=== PATIENT | male | born 1975 | race Hispanic/Latino ===

== ENCOUNTER → 2021-11-15 | Outpatient (CLI) | payer BC | END | disposition home or self-care (01) | LOC: RAH 12:42 | PROVIDERS: ATTEND Physical Medicine & Rehabilitation | DX: M47.812 Spondylosis without myelopathy or radiculopathy, cervical region (principal); M48.02 Spinal stenosis, cervical region; M54.6 Pain in thoracic spine; R29.6 Repeated falls | CPT/HCPCS: 72141; 72146 ==

== ENCOUNTER → 2021-11-25 | Outpatient (CLI) | payer BC | END | disposition home or self-care (01) | LOC: RAH 13:04 | PROVIDERS: ATTEND Physical Medicine & Rehabilitation | DX: G35 Multiple sclerosis (principal) | CPT/HCPCS: 70551 ==